=== PATIENT | male | born 1980 | race Caucasian/White ===

== ENCOUNTER 2018-11-26 08:11 | Inpatient (IN) | payer BC ==
[~2018-11-26] VITALS: Ht 182.8 cm; Wt 117.9 kg
[2018-11-26] VITALS (8 sets, daily range): BP systolic 100–129; BP diastolic 42–71
--- NOTE | ~2018-11-26 | EKG ---
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
[~2018-11-26 08:11] MED LIST: ANAPROX DS550 MG PO; BACTROBAN OINT22 GM PO; CILOXAN 5 ML5 ML OT; FLEXERIL10 MG PO; KEFLEX500 MG PO; PRILOSEC20 MG PO; TRAMADOL HCL50 MG PO; VICODIN 500 MG-1 TAB PO; ZOCOR10 MG PO
[2018-11-26 08:41] LABS: HEMATOCRIT 48.3 % (42.0-52.0); HEMOGLOBIN 16.3 g/dl (14.0-18.0); MEAN CELL VOLUME 82.6 fl (80.0-94.0); MEAN CORPUSCULAR HGB 27.9 pg (27.0-31.0); MEAN CORPUSCULAR HGB CONC 33.7 g/dl (33.0-37.0); MEAN PLATELET VOLUME 9.1 fl (9.6-12.3); PLATELET COUNT AUTOMATED 239 10*3/uL (130-400); RED BLOOD COUNT 5.85 10*6/uL (4.50-5.90); RED CELL DISTRI WIDTH 12.9 % (0-14.5); WHITE BLOOD COUNT 15.6 10*3/uL (4.8-10.8)
--- NOTE | 2018-11-26 08:45 | NUR ---
LACTIC CALLED CRITICAL DR NEWMAN NOTIFIED.
[2018-11-26 08:50] LABS: ACT PARTIAL THROMBO TIME 22.7 SECONDS (20.8-31.5)
[2018-11-26 08:58] LABS: ALBUMIN 3.8 gm/dl (3.1-4.5); ALKALINE PHOSPHATASE 78 U/L (45-117); BUN 19 mg/dl (7-24); CHLORIDE 105 mmol/L (98-107); CREATININE 1.19 mg/dL (0.70-1.30); LIPASE 86 U/L (73-393); SGOT/AST 15 IU/L (3-35); SGPT/ALT 38 U/L (12-78); SODIUM 139 mmol/L (136-145); TOTAL PROTEIN 7.6 gm/dL (6.4-8.2)
[2018-11-26 09:01] LABS: TROPONIN I < 0.015 ng/ml (<0.045)
[2018-11-26 09:03] LABS: ATYPICAL LYMPHS 1 % (0-0); PLATELET SUFFICIENCY NORMAL (NORMAL); TOTAL CELLS COUNTED 100 #CELLS
[2018-11-26 09:09] LABS: BILIRUBIN NEGATIVE (NEGATIVE); BLOOD NEGATIVE (NEGATIVE); CLARITY CLEAR (CLEAR); COLOR YELLOW (YELLOW); GLUCOSE NEGATIVE (NEGATIVE); KETONE NEGATIVE (NEGATIVE); LEUKO ESTERASE NEGATIVE (NEGATIVE); NITRITE NEGATIVE (NEGATIVE); SPECIFIC GRAVITY 1.015 (1.005-1.030); UROBILINOGEN 0.2 E.U./dl (0.2-1.0)
--- NOTE | 2018-11-26 12:00 | NUR ---
A 38, admitted to , under the services of EDNA Redd DO with a diagnosis of SINUS TACHYCARDIA, GASTROENTERITIS, LEUKOCYTOSIS. Chief complaint is VOMITING. Patient arrived via stretcher from ER. Monitor applied. Initial assessment completed. Vital signs taken and recorded. EDNA REDD DO notified of admission to the unit. Orders received. See assessment for past medical history, medications and allergies. Patient and/or family oriented to unit. [address] visitation policy reviewed. Clothing/patient valuable form completed. VANESSA TALLEY
[2018-11-26] MEDS ORDERED: NORTRIPTYLINE H10 MG PO (12:32)
--- NOTE | 2018-11-26 13:30 | NUR ---
PT REQUESTED AND WAS MEDICATED WITH TYLENOL FOR C/O HEADACHE. WILL MONITOR
--- NOTE | 2018-11-26 13:30 | NUR ---
PT REQUESTED AND WAS MEDICATED WITH TYLENOL FOR C/O HEADACHE.
--- NOTE | 2018-11-26 14:30 | NUR ---
PT STATES TYLENOL SLIGHTLY EFFECTIVE.
--- NOTE | 2018-11-26 15:25 | NUR ---
PT MEDICATED WITH MOTRIN FOR C/O HEADACHE. WILL MONITOR
--- NOTE | 2018-11-26 16:30 | NUR ---
MEDICATION "SOMEWHAT" EFFECTIVE PER PT. CALL LIGHT IN REACH. WILL MONITOR
[2018-11-27] VITALS: BP 112/54
--- NOTE | 2018-11-27 06:22 | NUR ---
PATIENTS OLD IV IN R HAND DEACCESSED BY PATIENT. NEW IV PLACED.
[2018-11-27 06:42] LABS: ALBUMIN 2.9 gm/dl (3.1-4.5); BASO % 0.5 % (0.0-1.0); BUN 12 mg/dl (7-24); CHLORIDE 108 mmol/L (98-107); CHOLESTEROL 151 mg/dL (<200); CREATININE 0.98 mg/dL (0.70-1.30); EOS # 0.2 10*3/uL (0.0-0.4); EOS % 2.3 % (1.0-4.0); LYMPH # 1.1 10*3/uL (1.3-4.4); LYMPH % 13.7 % (27.0-41.0); MEAN CELL VOLUME 84.5 fl (80.0-94.0); MEAN CORPUSCULAR HGB 26.7 pg (27.0-31.0); MEAN CORPUSCULAR HGB CONC 31.6 g/dl (33.0-37.0); MEAN PLATELET VOLUME 9.4 fl (9.6-12.3); MONO # 0.7 10*3/uL (0.1-1.0); MONO % 8.4 % (3.0-9.0); NEUT # 6.1 10*3/uL (2.3-7.9); NEUT % 74.6 % (47.0-73.0); PHOSPHOROUS 2.4 mg/dL (2.5-4.9); PLATELET COUNT AUTOMATED 186 10*3/uL (130-400); POTASSIUM 3.4 mmol/L (3.5-5.1); RED BLOOD COUNT 4.91 10*6/uL (4.50-5.90); RED CELL DISTRI WIDTH 13.2 % (0-14.5); SGOT/AST 15 IU/L (3-35); SGPT/ALT 27 U/L (12-78); SODIUM 142 mmol/L (136-145); TRIGLYCERIDES 103 mg/dl (<150); VLDL CHOLESTEROL 21 mg/dL (6-40); WHITE BLOOD COUNT 8.2 10*3/uL (4.8-10.8)
[2018-11-27 06:50] LABS: ALKALINE PHOSPHATASE 58 U/L (45-117); FREE T4 0.86 ng/dl (0.76-1.46); HDL CHOLESTEROL 40 mg/dl (40-60); LDL CHOLESTEROL 90 mg/dL (9-159); THYROID STIM HORMONE (HS) 0.289 uIU/ml (0.358-4.75); TOTAL PROTEIN 6.1 gm/dL (6.4-8.2)
[2018-11-27 07:14] LABS: HEMATOCRIT 41.5 % (42.0-52.0); HEMOGLOBIN 13.1 g/dl (14.0-18.0)
[2018-11-27 07:52] VITALS: BP 118/64
[2018-11-27 08:07] LABS: VITAMIN D, 25-HYDROXY 18.2 ng/mL (30-100)
--- NOTE | 2018-11-27 08:10 | NUR ---
ASSESSMENT COMPLETED AND DOCUMENTED. PT SITTING IS BED WAITING FOR BREAKFAST. NANETTE PALOMINO SPNRCC
--- NOTE | 2018-11-27 11:15 | NUR ---
Plate Shear Operator in to talk to patient. Patient states lives at HOME with . There are NO steps in the home. Physician: PATRICA Pharmacy: [facility]: NONE Patient's level of ADLs: INDEPENDENT Patient has working utilities: YES DME: NONE Follow-up physician's appointment after d/c: WILL BE MADE BY HOSPTIALIST NURSE DIRECTOR ON DISCHARGE Does patient want to access PORTAL?: NO Discharge plan PT LIVES AT HOME WITH HIS AND IS INDEPENDENT IN CARE. STATES NO NEEDS ON DISCHARGE. WILL TRANSPORT HIM HOME ON DISCHARGE. WILL CONTINUE TO FOLLOW.. ZABRINA KWAN
[2018-11-27 11:39] VITALS: BP 110/70
[2018-11-27] MEDS ORDERED: ZOFRAN4 MG PO (12:32)
[2018-11-27] MEDS ORDERED: TAMIFLU 75MG CA75 MG PO (12:32)
[2018-11-27] MEDS ORDERED: Motrin,Rufen800 MG PO (12:33)
--- NOTE | 2018-11-27 13:20 | NUR ---
Discharge instructions reviewed with patient/family. Patient receptive and verbalizes understanding. Follow-up care arranged. Written instructions given to patient/family. VANESSA TALLEY
== END 2018-11-27 13:30 | disposition home or self-care (01) | DRG 872 ==
LOC: ED 08:11 → EDHOLD 11:26 → 4E 11:26
PROVIDERS: Emergency Medicine; Registered Nurse; ADMIT Internal Medicine
DX: A41.9 Sepsis, unspecified organism (principal); R65.20 Severe sepsis without septic shock; B34.9 Viral infection, unspecified; R51 Headache; K52.9 Noninfective gastroenteritis and colitis, unspecified; E78.00 Pure hypercholesterolemia, unspecified; E66.9 Obesity, unspecified; Z82.49 Family history of ischemic heart disease and other diseases of the circulatory system; Z82.3 Family history of stroke; Z80.9 Family history of malignant neoplasm, unspecified; Z79.899 Other long term (current) drug therapy; Z68.35 Body mass index [BMI] 35.0-35.9, adult

== ENCOUNTER 2018-12-12 17:11 | Emergency (ER) | payer BC ==
[~2018-12-12] VITALS: Ht 182.8 cm; Wt 117.9 kg
--- NOTE | ~2018-12-12 | EKG ---
[place], [place] ELECTROCARDIOGRAM REPORT NAME: DARWIN JUNIOR UNIT #: [id number] ROOM: DOCTOR: EPIPHANY DRAFT REPORT BIRTHDATE: [birth year] [facility] Test Date: 2018-12-12 Test Time: 17:37:03 Pat Name: DARWIN JUNIOR Department: Room: Gender: [employer] Team Member: Ana Ware : 1980 Requested By: LAURA BARAJAS Order Number: [id number] Reading MD: Xavi Krueger MD Measurements Intervals [place] Rate: 99 P: 51 GA: 116 QRS: -3 QRSD: 88 T: 23 QT: 316 QTc: 406 Interpretive Statements Sinus rhythm Compared to ECG 11/26/2018 11:14:56 Sinus tachycardia no longer present Electronically Signed On 12-13-2018 15:48:51 PST by Xavi Krueger MD CM:EKGRPT:ELECTROCARDIOGRAM REPORT [id number] LAURA BARAJAS EPIPHANY DRAFT REPORT LAURA BARAJAS
[~2018-12-12 17:11] MED LIST changes: +Motrin,Rufen800 MG PO; +NORTRIPTYLINE H10 MG PO; +TAMIFLU 75MG CA75 MG PO; +ZOFRAN4 MG PO
[2018-12-12 17:41] LABS: BASO # 0.1 10*3/uL (0.0-0.1); BASO % 0.5 % (0.0-1.0); EOS # 0.2 10*3/uL (0.0-0.4); EOS % 1.1 % (1.0-4.0); HEMATOCRIT 45.6 % (42.0-52.0); HEMOGLOBIN 14.9 g/dl (14.0-18.0); LYMPH # 2.9 10*3/uL (1.3-4.4); LYMPH % 19.1 % (27.0-41.0); MEAN CELL VOLUME 83.8 fl (80.0-94.0); MEAN CORPUSCULAR HGB 27.4 pg (27.0-31.0); MEAN CORPUSCULAR HGB CONC 32.7 g/dl (33.0-37.0); MEAN PLATELET VOLUME 9.3 fl (9.6-12.3); MONO # 1.1 10*3/uL (0.1-1.0); MONO % 7.1 % (3.0-9.0); NEUT # 10.9 10*3/uL (2.3-7.9); NEUT % 71.7 % (47.0-73.0); PLATELET COUNT AUTOMATED 260 10*3/uL (130-400); RED BLOOD COUNT 5.44 10*6/uL (4.50-5.90); RED CELL DISTRI WIDTH 12.8 % (0-14.5); WHITE BLOOD COUNT 15.3 10*3/uL (4.8-10.8)
[2018-12-12 18:10] LABS: ALKALINE PHOSPHATASE 81 U/L (45-117); BUN 17 mg/dl (7-24); CHLORIDE 104 mmol/L (98-107); CREATININE 1.14 mg/dL (0.70-1.30); SGOT/AST 19 IU/L (3-35); SGPT/ALT 33 U/L (12-78); SODIUM 140 mmol/L (136-145); TOTAL PROTEIN 8.1 gm/dL (6.4-8.2)
[2018-12-12] MEDS ORDERED: PREDNISONE20 M1 PO (19:10)
[2018-12-12] MEDS ORDERED: ZITHROMAX250 MG PO (19:10)
== END 2018-12-12 19:11 | disposition home or self-care (01) ==
LOC: ED 17:11
PROVIDERS: Nurse Practitioner Family
DX: J20.9 Acute bronchitis, unspecified (principal); Z79.899 Other long term (current) drug therapy

== ENCOUNTER 2019-01-21 19:11 | Emergency (ER) | payer BC ==
[~2019-01-21] VITALS: Ht 182.8 cm; Wt 120.2 kg
--- NOTE | ~2019-01-21 | EKG ---
[place], [place] ELECTROCARDIOGRAM REPORT NAME: DARWIN JUNIOR UNIT #: [id number] ROOM: DOCTOR: EPIPHANY DRAFT REPORT BIRTHDATE: [birth year] [facility] Test Date: 2019-01-21 Test Time: 20:23:03 Pat Name: DARWIN JUNIOR Department: Room: Gender: [employer] Supervisor: Danis Daily : 1980 Requested By: KEITH VENTURA DNP Order Number: [id number] Reading MD: Olinda Pedro MD Measurements Intervals [place] Rate: 112 P: 22 NM: 121 QRS: 15 QRSD: 80 T: 50 QT: 324 QTc: 443 Interpretive Statements Sinus tachycardia Borderline ST elevation, anterior leads Compared to ECG 12/12/2018 17:37:03 ST (T wave) deviation now present Sinus rhythm no longer present Electronically Signed On 01-22-2019 8:19:11 PDT by Olinda Pedro MD CM:EKGRPT:ELECTROCARDIOGRAM REPORT 22 8 KEITH VENTURA DNP EPIPHANY DRAFT REPORT KEITH VENTURA DNP
[~2019-01-21 19:11] MED LIST changes: +PREDNISONE20 M1 PO; +ZITHROMAX250 MG PO
[2019-01-21 19:40] LABS: BASO % 0.3 % (0.0-1.0); EOS # 0.1 10*3/uL (0.0-0.4); EOS % 0.9 % (1.0-4.0); HEMATOCRIT 48.3 % (42.0-52.0); HEMOGLOBIN 15.9 g/dl (14.0-18.0); LYMPH # 0.7 10*3/uL (1.3-4.4); LYMPH % 4.8 % (27.0-41.0); MEAN CELL VOLUME 82.6 fl (80.0-94.0); MEAN CORPUSCULAR HGB 27.2 pg (27.0-31.0); MEAN CORPUSCULAR HGB CONC 32.9 g/dl (33.0-37.0); MONO # 0.7 10*3/uL (0.1-1.0); MONO % 4.3 % (3.0-9.0); NEUT # 13.5 10*3/uL (2.3-7.9); NEUT % 89.2 % (47.0-73.0); PLATELET COUNT AUTOMATED 233 10*3/uL (130-400); RED BLOOD COUNT 5.85 10*6/uL (4.50-5.90); RED CELL DISTRI WIDTH 13.1 % (0-14.5); WHITE BLOOD COUNT 15.1 10*3/uL (4.8-10.8)
[2019-01-21 20:04] LABS: ALKALINE PHOSPHATASE 81 U/L (45-117); BUN 16 mg/dl (7-24); CHLORIDE 107 mmol/L (98-107); CREATININE 1.06 mg/dL (0.70-1.30); POTASSIUM 3.8 mmol/L (3.5-5.1); SGOT/AST 20 IU/L (3-35); SGPT/ALT 47 U/L (12-78); SODIUM 140 mmol/L (136-145); TOTAL PROTEIN 7.7 gm/dL (6.4-8.2)
[2019-01-21 21:07] LABS: INTERNATIONAL NORM RATIO 0.9 (2.0-3.5)
[2019-01-21 21:31] LABS: BILIRUBIN NEGATIVE (NEGATIVE); BLOOD NEGATIVE (NEGATIVE); CLARITY CLEAR (CLEAR); COLOR YELLOW (YELLOW); GLUCOSE NEGATIVE (NEGATIVE); KETONE NEGATIVE (NEGATIVE); LEUKO ESTERASE NEGATIVE (NEGATIVE); NITRITE NEGATIVE (NEGATIVE); PH 5.5 (5.0-9.0); SPECIFIC GRAVITY >= 1.030 (1.005-1.030); UROBILINOGEN 0.2 E.U./dl (0.2-1.0)
[2019-01-21 21:37] LABS: BACTERIA 1+; EPITHELIAL CELLS 0-2; MUCOUS 3+
[2019-01-21 21:39] LABS: URINE AMPHETAMINES < 1000 (1000ng/ml); URINE BARBITURATES < 200 (200ng/ml); URINE BENZODIAZEPINES < 200 (200ng/ml); URINE CANNABINOIDS (THC) < 50 (50ng/ml); URINE COCAINE < 300 (300ng/ml); URINE METHADONE < 300 (300ng/ml); URINE OPIATES < 300 (300ng/ml)
[2019-01-21 21:42] LABS: URINE PHENCYCLIDINE < 25 (25ng/ml)
== END 2019-01-21 21:49 | disposition home or self-care (01) ==
LOC: ED 19:11
PROVIDERS: Nurse Practitioner Family
DX: B34.9 Viral infection, unspecified (principal); Z79.899 Other long term (current) drug therapy

== ENCOUNTER 2019-12-29 08:15 | Emergency (ER) | payer BC ==
[~2019-12-29] VITALS: Ht 182.8 cm; Wt 122.5 kg
== END 2019-12-29 09:46 | disposition home or self-care (01) ==
LOC: ED 08:15
DX: G43.909 Migraine, unspecified, not intractable, without status migrainosus (principal); R11.0 Nausea; Z79.2 Long term (current) use of antibiotics; Z79.899 Other long term (current) drug therapy

== ENCOUNTER 2020-01-14 12:00 | Emergency (ER) | payer BC ==
[~2020-01-14] VITALS: Ht 182.8 cm; Wt 120.2 kg
[2020-01-14 12:25] LABS: BASO # 0.1 10*3/uL (0.0-0.1); BASO % 0.6 % (0.0-1.0); EOS # 0.1 10*3/uL (0.0-0.4); EOS % 0.7 % (1.0-4.0); HEMATOCRIT 47.5 % (42.0-52.0); HEMOGLOBIN 15.2 g/dl (14.0-18.0); LYMPH # 1.6 10*3/uL (1.3-4.4); LYMPH % 15.7 % (27.0-41.0); MEAN CELL VOLUME 83.9 fl (80.0-94.0); MEAN CORPUSCULAR HGB 26.9 pg (27.0-31.0); MEAN PLATELET VOLUME 8.8 fl (9.6-12.3); MONO # 0.6 10*3/uL (0.1-1.0); MONO % 5.4 % (3.0-9.0); NEUT # 7.9 10*3/uL (2.3-7.9); NEUT % 76.7 % (47.0-73.0); PLATELET COUNT AUTOMATED 282 10*3/uL (130-400); RED BLOOD COUNT 5.66 10*6/uL (4.50-5.90); RED CELL DISTRI WIDTH 13.2 % (0-14.5); WHITE BLOOD COUNT 10.3 10*3/uL (4.8-10.8)
[2020-01-14 12:42] LABS: ALBUMIN 3.9 gm/dl (3.1-4.5); ALKALINE PHOSPHATASE 84 U/L (45-117); BUN 15 mg/dl (7-24); CHLORIDE 108 mmol/L (98-107); CREATININE 1.06 mg/dL (0.70-1.30); POTASSIUM 3.8 mmol/L (3.5-5.1); SGOT/AST 18 IU/L (3-35); SGPT/ALT 39 U/L (12-78); SODIUM 139 mmol/L (136-145); TOTAL PROTEIN 7.8 gm/dL (6.4-8.2)
[2020-01-14] MEDS ORDERED: REGLAN10 M1 PO (13:16)
== END 2020-01-14 13:34 | disposition home or self-care (01) ==
LOC: ED 12:00
PROVIDERS: Emergency Medicine
DX: R19.7 Diarrhea, unspecified (principal); R42 Dizziness and giddiness; R11.0 Nausea; G43.909 Migraine, unspecified, not intractable, without status migrainosus

== ENCOUNTER → 2020-03-19 | Outpatient (CLI) | payer BC ==
[~2020-03-19] MED LIST changes: +REGLAN10 M1 PO
== END | disposition home or self-care (01) ==
LOC: US 12:21
DX: Z80.51 Family history of malignant neoplasm of kidney (principal)

== ENCOUNTER 2022-02-18 09:19 | Emergency (ER) | payer BC ==
[~2022-02-18] VITALS: Wt 112.0 kg
[2022-02-18] MEDS ORDERED: SIMVASTATIN40 MG PO (09:42)
[2022-02-18] MEDS ORDERED: TOPIRAMATE50 M2 PO (09:42)
[2022-02-18] MEDS ORDERED: CYCLOBENZAPRINE10 MG PO (09:43)
[2022-02-18] MEDS ORDERED: ALLERGY RELIEF1 EAC2 PO (09:43)
[2022-02-18] MEDS ORDERED: OMEPRAZOLE40 MG PO (09:43)
[2022-02-18] MEDS ORDERED: NURTEC ODT75 MG PO (09:44)
[2022-02-18 09:48] LABS: BASO # 0.1 10*3/uL (0.0-0.1); BASO % 0.9 % (0.0-1.0); EOS # 0.1 10*3/uL (0.0-0.4); EOS % 1.1 % (1.0-4.0); HEMATOCRIT 46.8 % (42.0-52.0); LYMPH # 1.3 10*3/uL (1.3-4.4); LYMPH % 13.9 % (27.0-41.0); MEAN CELL VOLUME 81.3 fl (80.0-94.0); MEAN CORPUSCULAR HGB 26.2 pg (27.0-31.0); MEAN CORPUSCULAR HGB CONC 32.3 g/dl (33.0-37.0); MEAN PLATELET VOLUME 8.9 fl (9.6-12.3); MONO # 0.5 10*3/uL (0.1-1.0); MONO % 5.6 % (3.0-9.0); NEUT # 7.1 10*3/uL (2.3-7.9); PLATELET COUNT AUTOMATED 257 10*3/uL (130-400); RED BLOOD COUNT 5.76 10*6/uL (4.50-5.90); RED CELL DISTRI WIDTH 12.8 % (0-14.5); WHITE BLOOD COUNT 9.1 10*3/uL (4.8-10.8)
[2022-02-18 09:53] LABS: BILIRUBIN Negative (Negative); BLOOD 3+ (Negative); CLARITY Turbid (Clear); COLOR Yellow (Yellow); GLUCOSE Negative (Negative); KETONE Negative (Negative); LEUKO ESTERASE Trace (Negative); NITRITE Negative (Negative); SPECIFIC GRAVITY 1.025 (1.001-1.030)
[2022-02-18 10:03] LABS: ALKALINE PHOSPHATASE 102 U/L (45-117); BUN 15 mg/dl (7-24); CHLORIDE 110 mmol/L (98-107); CREATININE 1.17 mg/dL (0.70-1.30); LIPASE 159 U/L (73-393); POTASSIUM 4.1 mmol/L (3.5-5.1); SGOT/AST 23 IU/L (3-35); SGPT/ALT 42 U/L (12-78); SODIUM 139 mmol/L (136-145); TOTAL PROTEIN 7.9 gm/dL (6.4-8.2)
[2022-02-18 10:05] LABS: RBC TNTC rbc/hpf (0-2)
[2022-02-18] MEDS ORDERED: ZOFRAN4 MG PO (12:03)
[2022-02-18] MEDS ORDERED: PERCOCET 5-3251 EACH PO (12:03)
[2022-02-18] MEDS ORDERED: FLOMAX0.4 MG PO (12:03)
== END 2022-02-18 12:42 | disposition home or self-care (01) ==
LOC: ED 09:19
PROVIDERS: Internal Medicine
DX: N13.2 Hydronephrosis with renal and ureteral calculous obstruction (principal); Z87.442 Personal history of urinary calculi; Z79.899 Other long term (current) drug therapy

== ENCOUNTER 2022-05-22 18:14 | Emergency (ER) | payer BC ==
[~2022-05-22] VITALS: Wt 114.8 kg
[~2022-05-22 18:14] MED LIST changes: +ALLERGY RELIEF1 EAC2 PO; +CYCLOBENZAPRINE10 MG PO; +FLOMAX0.4 MG PO; +NURTEC ODT75 MG PO; +OMEPRAZOLE40 MG PO; +PERCOCET 5-3251 EACH PO; +SIMVASTATIN40 MG PO; +TOPIRAMATE50 M2 PO
== END 2022-05-22 19:37 | disposition home or self-care (01) ==
LOC: ED 18:14
DX: S92.511A Displaced fracture of proximal phalanx of right lesser toe(s), initial encounter for closed fracture (principal); K21.9 Gastro-esophageal reflux disease without esophagitis; E78.5 Hyperlipidemia, unspecified; Z79.899 Other long term (current) drug therapy; Z90.89 Acquired absence of other organs; W20.8XXA Other cause of strike by thrown, projected or falling object, initial encounter; Y93.89 Activity, other specified; Y92.89 Other specified places as the place of occurrence of the external cause; Y99.8 Other external cause status

== ENCOUNTER → 2024-08-31 | Outpatient (CLI) | payer OTHER ==
[~2024-08-31] MED LIST changes: +HEPARIN SODIUM 500 UNIT/5 ML SYR IV SCH; +SODIUM CHLORIDE 0.9% 10 ML SYR IV PRN; +ZOLOFT25 MG PO
[2024-08-31 09:16] VITALS: BP 129/84
== END | disposition home or self-care (01) ==
LOC: PICC 08:49
PROVIDERS: ATTEND Internal Medicine Infectious Disease
DX: Z45.2 Encounter for adjustment and management of vascular access device (principal); H70.12 Chronic mastoiditis, left ear; G43.909 Migraine, unspecified, not intractable, without status migrainosus; K21.9 Gastro-esophageal reflux disease without esophagitis; Z88.2 Allergy status to sulfonamides; Z98.890 Other specified postprocedural states; Z82.49 Family history of ischemic heart disease and other diseases of the circulatory system

== ENCOUNTER 2024-09-02 10:03 | Emergency (ER) | payer OTHER ==
[~2024-09-02] VITALS: Wt 122.5 kg
[~2024-09-02 10:03] MED LIST changes: -HEPARIN SODIUM 500 UNIT/5 ML SYR IV SCH; -SODIUM CHLORIDE 0.9% 10 ML SYR IV PRN
[2024-09-02] MEDS ORDERED: Acetaminophen/Oxycodone 5 MG/325 MG TABLET PO ONE (10:25)
[2024-09-02] MEDS ORDERED: PERCOCET 5-3251 EACH PO (10:30)
== END 2024-09-02 10:42 | disposition home or self-care (01) ==
LOC: ED 10:03
DX: G56.12 Other lesions of median nerve, left upper limb (principal); K21.9 Gastro-esophageal reflux disease without esophagitis; G43.909 Migraine, unspecified, not intractable, without status migrainosus; R20.0 Anesthesia of skin; Z88.2 Allergy status to sulfonamides; Z88.8 Allergy status to other drugs, medicaments and biological substances; Z98.890 Other specified postprocedural states

== ENCOUNTER 2025-01-03 10:47 | Emergency (ER) | payer OTHER ==
[~2025-01-03] VITALS: Ht 180.3 cm; Wt 122.5 kg
[2025-01-03] MEDS ORDERED: IBUPROFEN 800 MG TAB PO ONE (11:05)
[2025-01-03] MEDS ORDERED: CEPHALEXIN 500 MG CAP PO ONE (11:05)
[2025-01-03] MEDS ORDERED: Tdap Vaccine 0.5 ML SYR (Adult Vaccine) IM ONE (11:30)
[2025-01-03] MEDS ORDERED: Lidocaine Hydrochloride 30 ML VIAL IM ONE (11:30)
[2025-01-03] MEDS ORDERED: CEPHALEXIN500 M1 PO (12:22)
== END 2025-01-03 12:28 | disposition home or self-care (01) ==
LOC: ED 10:47
DX: S61.213A Laceration without foreign body of left middle finger without damage to nail, initial encounter (principal); Z88.2 Allergy status to sulfonamides; Z79.899 Other long term (current) drug therapy; W31.89XA Contact with other specified machinery, initial encounter; Y93.89 Activity, other specified; Y92.89 Other specified places as the place of occurrence of the external cause; Y99.0 Civilian activity done for income or pay